=== PATIENT | male | born 1985 | race Caucasian/White ===

== ENCOUNTER 2021-04-08 13:52 | Emergency (ER) | payer OTHER ==
[2021-04-08 16:51] LABS: BASOPHIL 0.9 % (0-2); EOSINOPHIL 1.5 % (0-5); HCT 47.1 % (42.0-52.0); HGB 15.6 g/dl (13.2-18.0); LYMPHOCYTE 31.9 % (15-48); MCH 31.7 pg (25.0-31.0); MCHC 33.1 g/dL (32.0-36.0); MCV 95.7 fL (78.0-100.0); MONOCYTE 10.1 % (0-12); MPV 9.4 fL (6.0-9.5); NEUTROPHIL 55.4 % (41-80); NRBC 0; PLT 305 K/uL (150-400); RBC 4.92 M/uL (4.70-6.00); RDW 12.8 % (11.5-14.0); WBC 5.5 K/uL (4.0-10.5)
[2021-04-08 17:06] LABS: BUN/CREAT RATIO (CALC) 9.6 RATIO; CREATININE 0.52 mg/dL (0.67-1.17); POTASSIUM 4.6 mmol/L (3.5-5.1)
== END 2021-04-08 18:48 | disposition home or self-care (01) ==
LOC: FER 13:52
PROVIDERS: Nurse Practitioner Family
DX: M79.662 Pain in left lower leg (principal); M79.672 Pain in left foot; J45.909 Unspecified asthma, uncomplicated; F17.210 Nicotine dependence, cigarettes, uncomplicated
CPT/HCPCS: 36415; 80048; 85025; 93971; 96372; J1100; J1885